=== PATIENT | male | born 1975 | race Caucasian/White ===

== ENCOUNTER 2019-11-16 06:49 | Emergency (ER) | payer OTHER ==
[~2019-11-16] VITALS: Ht 170.1 cm; Wt 83.9 kg
[2019-11-16 07:44] LABS: BASO # 0.1 10*3/uL (0.0-0.1); BASO % 0.6 % (0.0-1.0); EOS # 0.1 10*3/uL (0.0-0.4); EOS % 0.7 % (1.0-4.0); HEMATOCRIT 44.8 % (42.0-52.0); LYMPH % 16.9 % (27.0-41.0); MEAN CELL VOLUME 94.5 fl (80.0-94.0); MEAN CORPUSCULAR HGB 31.4 pg (27.0-31.0); MEAN CORPUSCULAR HGB CONC 33.3 g/dl (33.0-37.0); MONO # 0.8 10*3/uL (0.1-1.0); MONO % 6.3 % (3.0-9.0); NEUT % 75.2 % (47.0-73.0); PLATELET COUNT AUTOMATED 273 10*3/uL (130-400); RED BLOOD COUNT 4.74 10*6/uL (4.50-5.90); RED CELL DISTRI WIDTH 12.4 % (0-14.5); WHITE BLOOD COUNT 11.9 10*3/uL (4.8-10.8)
[2019-11-16 07:53] LABS: BILIRUBIN NEGATIVE (NEGATIVE); BLOOD 3+ (NEGATIVE); CLARITY SL CLOUDY (CLEAR); COLOR YELLOW (YELLOW); GLUCOSE NEGATIVE (NEGATIVE); KETONE TRACE (NEGATIVE); LEUKO ESTERASE NEGATIVE (NEGATIVE); MUCOUS TRACE; NITRITE NEGATIVE (NEGATIVE); RBC 51-100 rbc/hpf (0-2); SPECIFIC GRAVITY 1.025 (1.005-1.030); UROBILINOGEN 0.2 E.U./dl (0.2-1.0)
[2019-11-16 08:04] LABS: ALBUMIN 3.8 gm/dl (3.1-4.5); ALKALINE PHOSPHATASE 78 U/L (45-117); BUN 16 mg/dl (7-24); CHLORIDE 111 mmol/L (98-107); CREATININE 1.06 mg/dL (0.70-1.30); LIPASE 56 U/L (73-393); POTASSIUM 4.7 mmol/L (3.5-5.1); SGOT/AST 28 IU/L (3-35); SGPT/ALT 43 U/L (12-78); SODIUM 140 mmol/L (136-145); TOTAL PROTEIN 7.7 gm/dL (6.4-8.2)
[2019-11-16] MEDS ORDERED: NORCO 5-325 TA1 EACH PO ×2 (09:05→09:07)
[2019-11-16] MEDS ORDERED: FLOMAX0.4 MG PO (09:05)
[2019-11-16] MEDS ORDERED: ZOFRAN4 MG PO (09:07)
== END 2019-11-16 09:15 | disposition home or self-care (01) ==
LOC: ED 06:49
PROVIDERS: Family Medicine
DX: N20.0 Calculus of kidney (principal)